=== PATIENT | male | born 1950 | race Caucasian/White ===

== ENCOUNTER → 2018-07-21 08:28 | Outpatient (CLI) | payer MEDICARE, OTHER, SELFPAY ==
[2018-07-21 10:14] LABS: Alanine Aminotransferase 30 IU/L (21-72); Aspartate Aminotransferase 20 IU/L (17-59); Cholesterol 201 mg/dL (140-199); HDL Cholesterol 57 mg/dL (40-60); LDL Cholesterol Calculated 109 mg/dL (<100); Triglycerides 174 mg/dL (35-150)
[2018-07-21 10:42] LABS: Prostate Specific Antigen Scrn 1.76 ng/mL (0.1-4.0)
== END ==
PROVIDERS: PCP Internal Medicine; Visit Provider Internal Medicine
DX: E78.2 Mixed hyperlipidemia (principal); Z23 Encounter for immunization
CPT/HCPCS: 36415; 80061; 84450; 84460; G0103

== ENCOUNTER 2018-10-08 07:22 | Day surgery (SDC) | payer MEDICARE, OTHER, SELFPAY ==
[2018-10-08] VITALS (8 sets, daily range): BP systolic 108–137; BP diastolic 68–81; PULSE 56–72; RESP 10–15; TEMP 36.2–36.6; O2SAT 65–95; BMI 31.0
--- NOTE | 2018-10-08 | PATH_ITS ---
[facility] Accession Number: [id number] . 01 Material submitted: . PART A: CECAL POLYP PART B: TRANSVERSE COLON POLYP X3 . 02 Diagnosis: A. Biopsy, Cecal Polyp: Tubular adenoma involving single biopsy fragment. . B. Biopsy, Transverse Colon Polyps: Three polypoid-shaped fragments of normal appearing colon mucosa consistent with mucosal polypoid redundancies. Negative for evidence of neoplasm on multiple histologic sections. MRV/10/09/2018 . 02 Electronically signed: . Nelson Beavers MD, Pathologist NPI- [id number] . 01 Gross description: . Received two formalin-filled containers, both labeled with the patient's name: . A. In a container labeled cecal polyp, are three less than 0.1 cm to 0.3 cm portions of tissue, entirely submitted in cassette A. B. In a container labeled transverse colon polyp x3, are three 0.3-0.5 cm portions of tissue, entirely submitted in cassette B. ([id number]) /FRR . 02 Pathologist provided ICD-10: D12.0 . 02 CPT . 068334, 028707 Performed at: 01 [facility] [address], [place], [place] [id number] MD Todd Coffey MD Phone: [phone] Performed at: 02 [facility] [address] [place], [place] [id number] MD Joan Mcnamara MD Phone: [phone]
[2018-10-08] MEDS: MIDAZOLAM 5 MG/5 ML VIAL IV (08:47)
[2018-10-08] MEDS: fentaNYL 250 MCG/5 ML INJ IV (08:48)
--- NOTE | 2018-10-08 08:56 | PM.HP.1 ---
History of Present Illness Chief complaint: [id number] Patient History Social History household members: spouse Family & Social History Social History: household members spouse Meds Home Medications Medication Instructions Recorded Confirmed Type Propoxyphene/Acetamin - 1 tab PO Q 4HR PRN #0 02/07/08 History (Darvocet-N 100) ROSUVASTATIN CALCIUM (Crestor) 10 mg PO Q DAY #0 02/07/08 History [CETRUM CARDIO] #0 02/07/08 History [CIALIS] 10 mg PO PRN #0 02/07/08 History [OCUVITE] #0 02/07/08 History atorvastatin 20 mg PO QPM 10/08/18 10/08/18 History lisinopril 10 mg PO DAILY 10/08/18 10/08/18 History Allergies Allergy/AdvReac Type Severity Reaction Status Date / Time Penicillins [PENICILLINS] Allergy Unknown Verified 10/08/18 07:50 Exam Vital Signs (past 8 hours): - 10/08/18 07:33 Temperature 97.3 F L Pulse Rate 67 Respiratory Rate 15 Blood Pressure 137/81 Pulse Oximetry 93 Oxygen Delivery Method Room Air
--- NOTE | 2018-10-08 08:57 | PM.PREOP ---
Pre-operative Note Interval Note History & Physical reviewed/Exam performed by Physician: Yes Changes to H&P: No ASA Class (for procedural sedation): II
--- NOTE | 2018-10-08 08:57 | PM.OP.ENDO ---
Operative Date/Time/Diagnoses Date of procedure: 10/08/18 Pre-op diagnosis: colon cancer screening Procedure & Clinicians Study performed: Colonoscopy with biopsy Indications: Colon cancer screening Procedure Notes Procedure in detail: Prior to the procedure, a history and physical was performed, and patient medications and allergies were reviewed. Preprocedure nursing history assessment was reviewed. Patient identification and proposed procedure were verified by the physician and nurse in the procedure room. The physical status of the patient was reassessed after the procedure. After informed consent was obtained including risks, benefits, and alternatives, the scope was passed under direct vision. Throughout the procedure, the patient's blood pressure, pulse, and oxygen saturations were monitored continuously. The adult colonoscope was introduced through the anus and advanced to the cecum as identified by the appendiceal orifice and ileocecal valve. The patient tolerated the procedure well. Bowel prep was deemed adequate to detect polyps greater than 5 mm. Digital rectal examination and perianal examinations were unremarkable. Retroflexion in the rectum revealed grade 1 internal hemorrhoids. Many medium mouth diverticula were seen in the descending and sigmoid colon Four sessile polyps measuring between 2-4 mm were noted in the cecum and transverse colon. These were resected and retrieved with a Jumbo biopsy forceps. A tattoo was noted in the sigmoid colon. No residual polyp was seen. Sedation minutes: 24 Complications: other (No complications. Estimated blood loss minimal.) Impression: Internal hemorrhoids Four 2-4 mm polyps removed from the cecum and transverse colon Sigmoid colon tattoo from prior polypectomy Plan for aftercare: Follow-up pathology results Repeat colonoscopy at a date to be determined based on pathology results High-fiber diet Resume home medications Discharge home with escort
[2018-10-08] MEDS: SODIUM CHLORIDE 0.9% 1,000 ML 200 ML IV (09:03)
--- NOTE | 2018-10-08 09:15 | SUR.PHASEI ---
care transferred to Glenna Kaiser RN, report given.,
--- NOTE | 2018-10-08 09:18 | SUR.PHASEI ---
Assumed care. Denied pain. Abd soft. O2 sats 90-95% on RA.
--- NOTE | 2018-10-08 09:21 | SUR.PHASEI ---
Declined po intake.
--- NOTE | 2018-11-05 17:01 | PM.HP.1 ---
History of Present Illness Chief complaint: [id number] Patient History Social History household members: spouse Family & Social History Social History: household members spouse Meds Home Medications Medication Instructions Recorded Confirmed Type Propoxyphene/Acetamin - 1 tab PO Q 4HR PRN #0 02/07/08 History (Darvocet-N 100) ROSUVASTATIN CALCIUM (Crestor) 10 mg PO Q DAY #0 02/07/08 History [CETRUM CARDIO] #0 02/07/08 History [CIALIS] 10 mg PO PRN #0 02/07/08 History [OCUVITE] #0 02/07/08 History atorvastatin 20 mg PO QPM 10/08/18 10/08/18 History lisinopril 10 mg PO DAILY 10/08/18 10/08/18 History Allergies Allergy/AdvReac Type Severity Reaction Status Date / Time Penicillins [PENICILLINS] Allergy Unknown Verified 10/08/18 07:50 Review of Systems Review of Systems All systems reviewed & are unremarkable except as noted in HPI and below Exam Vital Signs (past 8 hours): Oxygen Delivery Method Room Air Oxygen Flow Rate 93 Narrative Exam Narrative: Awake alert and oriented x3, pupils equal round reactive to light, heart regular rate and rhythm, lungs clear to auscultation, abdomen soft nontender nondistended, extremities without edema Assessment & Plan Assessment & Plan narrative: Colon cancer screening, colonoscopy
== END 2018-10-08 10:08 | disposition home or self-care (01) ==
PROVIDERS: PCP Internal Medicine; Visit Provider Internal Medicine
PROC: 0DJD8ZZ Inspection of Lower Intestinal Tract, Via Natural or Artificial Opening Endoscopic (ICD-10-PCS; CPT 45378; principal; 2018-10-08 08:30)
DX: Z12.11 Encounter for screening for malignant neoplasm of colon (principal); K57.30 Diverticulosis of large intestine without perforation or abscess without bleeding; K64.0 First degree hemorrhoids; D12.0 Benign neoplasm of cecum; D12.3 Benign neoplasm of transverse colon
CPT/HCPCS: 45380; 88305; J2250; J3010

== ENCOUNTER → 2018-11-21 08:17 | Outpatient (CLI) | payer MEDICARE, OTHER, SELFPAY ==
[2018-11-21 10:53] LABS: HEMOLYSIS < 15 (0-50)
[2018-11-21 10:58] LABS: Alanine Aminotransferase 27 IU/L (21-72); Aspartate Aminotransferase 23 IU/L (17-59); Blood Urea Nitrogen 20 mg/dL (9-20); Calcium 9.3 mg/dL (8.4-10.2); Carbon Dioxide 24 mmol/L (22-32); Chloride 104 mmol/L (98-107); Cholesterol 192 mg/dL (140-199); Estimated Glomerular Filt Rate > 60.0 mL/min (>60); Glucose 101 mg/dL (80-110); HDL Cholesterol 46 mg/dL (40-60); LDL Cholesterol Calculated 108 mg/dL (<100); Potassium 4.2 mmol/L (3.4-5.1); Sodium 139 mmol/L (137-145); Triglycerides 190 mg/dL (35-150)
[2018-11-21 11:31] LABS: Prostate Specific Antigen Scrn 1.86 ng/mL (0.1-4.0)
== END ==
PROVIDERS: PCP Internal Medicine; Visit Provider Internal Medicine
DX: I10 Essential (primary) hypertension (principal); Z12.5 Encounter for screening for malignant neoplasm of prostate; E78.2 Mixed hyperlipidemia
CPT/HCPCS: 36415; 80048; 80061; 84450; 84460; G0103

== ENCOUNTER → 2019-05-25 07:19 | Outpatient (CLI) | payer MEDICARE, OTHER, SELFPAY ==
[2019-05-25 09:04] LABS: Alanine Aminotransferase 32 IU/L (21-72); Aspartate Aminotransferase 24 IU/L (17-59); Blood Urea Nitrogen 16 mg/dL (9-20); Calcium 9.4 mg/dL (8.4-10.2); Carbon Dioxide 28 mmol/L (22-32); Chloride 104 mmol/L (98-107); Cholesterol 186 mg/dL (140-199); Estimated Glomerular Filt Rate > 60.0 mL/min (>60); Glucose 100 mg/dL (80-110); HDL Cholesterol 51 mg/dL (40-60); HEMOLYSIS < 15 (0-50); LDL Cholesterol Calculated 101 mg/dL (<100); Potassium 4.1 mmol/L (3.4-5.1); Sodium 140 mmol/L (137-145); Triglycerides 172 mg/dL (35-150)
== END ==
PROVIDERS: PCP Internal Medicine; Visit Provider Internal Medicine
DX: E78.2 Mixed hyperlipidemia (principal); I10 Essential (primary) hypertension
CPT/HCPCS: 36415; 80048; 80061; 84450; 84460

== ENCOUNTER → 2019-10-09 16:01 | Outpatient (CLI) | payer MEDICARE, OTHER, SELFPAY ==
--- NOTE | 2019-10-09 16:03 | DI.MRI.S_ITS ---
PROCEDURE: MR HEAD/BRAIN WO CON INDICATIONS: ANESTHESIA OF SKIN TECHNIQUE: Noncontrast axial T1 spin echo, axial T2 fast spin echo, sagittal and axial FLAIR, coronal T2 fast spin echo, axial gradient echo, axial diffusion and ADC through the brain. COMPARISON: None. FINDINGS: Image quality: Excellent. CSF Spaces: Basal cisterns are patent. No extra-axial fluid collections. Ventricles are normal in size and shape. Brain: No intracranial masses or hemorrhage. Stanley/white matter interface is normal. Brainstem appears normal. Diffusion-weighted images demonstrate no acute ischemic insult. No chronic ischemic insults. There are small foci of increased T2 signal in our noted in the white matter structures, within normal limits for patient age. Normal intravascular flow voids are present. Skull and face: Calvarium has normal marrow signal. Orbits appear normal. Sinuses: Mild left maxillary sinus mucosal thickening. Small right maxillary sinus mucus retention cyst. Sinuses and mastoids are otherwise clear. IMPRESSION: 1. Mild chronic left maxillary sinusitis. 2. Otherwise negative brain MRI for patient age. Dictated by: Zay Tirado M.D. on 10/10/2019 at 20:07 Approved by: Zay Tirado M.D. on 10/10/2019 at 20:09
== END ==
PROVIDERS: PCP Internal Medicine; Referring Provider Internal Medicine; Visit Provider Internal Medicine
DX: R20.0 Anesthesia of skin (principal); J32.0 Chronic maxillary sinusitis
CPT/HCPCS: 70551

== ENCOUNTER → 2020-08-16 08:05 | Outpatient (CLI) | payer MEDICARE, OTHER, SELFPAY ==
[2020-08-16 10:28] LABS: Alanine Aminotransferase 24 IU/L (<50); Albumin 3.8 g/dL (3.5-5.0); Albumin Globulin Ratio 1.3 (1.0-2.8); Alkaline Phosphatase 69 U/L (38-126); Aspartate Aminotransferase 22 IU/L (17-59); BUN Creatinine Ratio 16.5 (6-22); Bilirubin Total 0.4 mg/dL (0.2-1.3); Blood Urea Nitrogen 17 mg/dL (9-20); Calcium 9.9 mg/dL (8.4-10.2); Carbon Dioxide 29 mmol/L (22-32); Chloride 105 mmol/L (98-107); Cholesterol 168 mg/dL (140-199); Estimated Glomerular Filt Rate > 60.0 mL/min (>60); Glucose 101 mg/dL (80-110); HDL Cholesterol 56 mg/dL (40-60); HEMOLYSIS < 15 (0-50); LDL Cholesterol Calculated 78 mg/dL (<100); Potassium 4.2 mmol/L (3.4-5.1); Sodium 137 mmol/L (137-145); Total Protein 6.8 g/dL (6.3-8.2); Triglycerides 172 mg/dL (35-150)
[2020-08-17 07:14] LABS: PSA Free % 38.3 % (.); PSA, Total 2.4 ng/mL (0.0-4.0)
== END ==
PROVIDERS: PCP Internal Medicine; Referring Provider Internal Medicine; Visit Provider Internal Medicine
DX: I10 Essential (primary) hypertension (principal); E78.2 Mixed hyperlipidemia; Z12.5 Encounter for screening for malignant neoplasm of prostate
CPT/HCPCS: 36415; 80053; 80061; 84153; 84154

== ENCOUNTER → 2020-11-04 12:50 | Outpatient (CLI) | payer MEDICARE, OTHER, SELFPAY ==
[2020-11-04] MEDS: COVID-19 VACC, Ad26(JANSSEN)/PF 0.5 ML IM (13:19)
== END ==
PROVIDERS: PCP Internal Medicine; Visit Provider Internal Medicine
DX: Z23 Encounter for immunization (principal)
CPT/HCPCS: 0031A; 91303

== ENCOUNTER → 2020-11-10 19:11 | Outpatient (ROUT) | payer MEDICARE, OTHER, SELFPAY ==
[2020-11-10 19:19] LABS: Add Manual Diff / Slide Review NO; Basophils Absolute Auto 100 /uL (0-100); Basophils Percent Auto 0.8 % (0-2); Eosinophils Absolute Auto 200 /uL (0-450); Eosinophils Percent Auto 2.1 % (2-4); Hematocrit 45.5 % (41-53); Hemoglobin 15.4 g/dL (13.5-17.5); Lymphocytes Absolute Auto 1800 /uL (1100-4500); Lymphocytes Percent Auto 24.6 % (25-40); Mean Corpuscular HGB Conc 33.8 % (30-36); Mean Corpuscular Hemoglobin 31.2 PG (26-34); Mean Corpuscular Volume 92.4 fL (80-100); Monocytes Absolute Auto 1000 /uL (0-900); Monocytes Percent Auto 13.8 % (3-14); Neutrophils Absolute Auto 4400 /uL (1500-7000); Neutrophils Percent Auto 58.7 % (50-75); Platelet Count 204 X10^3/uL (150-400); Red Blood Cell Count 4.93 X10^6/uL (4.5-5.9); Red Cell Distribution Width 13.6 % (11.6-14.8); White Blood Cell Count 7.4 X10^3/uL (4.5-11.0)
[2020-11-10 19:29] LABS: Alanine Aminotransferase 22 IU/L (<50); Albumin 4.4 g/dL (3.5-5.0); Albumin Globulin Ratio 1.6 (1.0-2.8); Alkaline Phosphatase 82 U/L (38-126); Aspartate Aminotransferase 25 IU/L (17-59); BUN Creatinine Ratio 19.6 (6-22); Bilirubin Total 0.5 mg/dL (0.2-1.3); Blood Urea Nitrogen 18 mg/dL (9-20); Calcium 9.7 mg/dL (8.4-10.2); Carbon Dioxide 26 mmol/L (22-32); Chloride 105 mmol/L (98-107); Estimated Glomerular Filt Rate > 60.0 mL/min (>60); Globulin 2.8 g/dL (1.7-4.1); Glucose 95 mg/dL (80-110); HEMOLYSIS < 15 (0-50); Potassium 4.1 mmol/L (3.4-5.1); Sodium 137 mmol/L (137-145); Total Protein 7.2 g/dL (6.3-8.2)
[2020-11-10 19:58] LABS: TSH w/ Reflex to FT4 1.23 uIU/mL (0.47-4.68)
[2020-11-10 20:03] LABS: Ferritin 135 ng/mL (18-464)
== END ==
PROVIDERS: Visit Provider Physician Assistant
DX: R00.2 Palpitations (principal); R23.2 Flushing; I10 Essential (primary) hypertension
CPT/HCPCS: 80053; 82728; 84443; 85025

== ENCOUNTER → 2020-11-16 09:45 | Outpatient (CLI) | payer MEDICARE, OTHER, SELFPAY ==
--- NOTE | 2020-12-08 10:57 | PM.CARDMON.1 ---
Environmental Health And Safety Leader Report Referral & Results Date Patient Seen: 11/16/20 Requesting provider: Christine Szymanski Indication: Palpitations Duration of monitoring (days): 7 Diary information: There were 17 patient triggered events and 5 patient diary entries Patient triggered events were associated with (within 45 seconds) sinus rhythm, PVCs, PACs, ventricular trigeminy, and computer identified junctional rhythm Patient diary events were associated with (within 45 seconds) sinus rhythm, PVCs, PACs, and computer identified junctional rhythm Data: Minimum heart rate was 46 beats per minute at 04:40 on 11/18/2020 Maximum heart rate was 108 beats per minute at 16:40 on 11/19/2020 Less than 1% of identified beats were ventricular or supraventricular ectopic in origin, which would classify them as rare. The longest run of ventricular trigeminy was 25.3 seconds in duration What the computer identified as junctional rhythm appears to me to be narrow complex, probably supraventricular in origin, rather than true junctional rhythm Impression: Normal 7 day quality assurance monitor final showing rare PVCs and PACs without clear connection between patient reported symptoms and 1 particular dysrhythmia. No more serious dysrhythmias identified on this study
== END ==
PROVIDERS: PCP Internal Medicine; Referring Provider Physician Assistant; Visit Provider Physician Assistant
DX: R00.2 Palpitations (principal)
CPT/HCPCS: 93242; 93244

== ENCOUNTER → 2021-03-07 09:04 | Outpatient (CLI) | payer MEDICARE, OTHER, SELFPAY ==
--- NOTE | 2021-03-07 | DI.ECHO.S_ITS ---
[facility] [place] [facility]---------+ [facility] +---------+ : : [address] : : : : [id number] : : : : Phone: [phone]+ Echocardiogram Report + + :Name: GREG JERONIMO JR Study Date: 03/07/2021 Height: 69 in : :[facility] ReadingLocation: Weight: 220 lb : : Gender: Male BSA: 2.2 m2 : :: 1950 Age: 70 yrs BP: 134/79 mmHg: :Reason For Study: PALPITATIONS : :Ordering Physician: ADRIAN : :MADINA Performed By: Anusha Ibarra : :Referring: MADINA CAMPBELL : + + Interpretation Summary 1) Normal left ventricular size, wall motion, and systolic function (EF 55- 60%). 2) Normal right ventricular size and function. 3) No significant valvular abnormalities. 4) No prior Echo available for comparison. Procedure: A two-dimensional transthoracic echocardiogram with color flow and Doppler was performed. The study quality was technically adequate. There is no prior echocardiogram noted for this patient. The patient was in sinus bradycardia with heart rates between 52-58 bpm during the exam. Left Ventricle: The left ventricle is normal in size. Left ventricular wall thickness is mildly increased. The ejection fraction is estimated to be 55- 60%. Left ventricular systolic function appears normal without focal wall motion abnormalities. Diastolic parameters suggest probable normal left ventricular diastolic function and normal filling pressures. Right Ventricle: The right ventricle is normal in size and function. Atria: The left atrial size is normal. Right atrial size is normal. There is no Doppler evidence for an interatrial shunt. Mitral Valve: The mitral valve leaflets appear mildly thickened, but open well. There is mild mitral annular calcification. There is mild mitral regurgitation. Aortic Valve: The aortic valve is trileaflet. The aortic valve opens well. There is no aortic valve stenosis. There is trace aortic regurgitation. Tricuspid Valve: The tricuspid valve is normal in structure and function. There is a trace or physiologic amount of tricuspid regurgitation. Pulmonary artery pressures cannot be estimated because of the lack of a measurable TR jet velocity but the IVC suggests a CVP of around 3 mmHg. Pulmonic Valve: The pulmonic valve leaflets are thin and pliable; valve motion is normal. There is trace pulmonic regurgitation. Great Vessels: The aortic root is normal size. The ascending aorta is at the upper limits of normal in size. The IVC is of normal diameter and collapses greater than 50% with a sniff. This suggests a low right atrial pressure of 3 mm Hg. Pericardium/ Pleura There is no pericardial effusion. There is no pleural effusion. MMode/2D Measurements & Calculations LVIDd: 4.9 cm LVOT diam: 2.0 cm LVIDs: 3.4 cm Ao root diam: 3.5 cm FS: 31.2 % asc Aorta Diam: 3.5 cm IVSd: 0.99 cm Ao Arch Diam (Prox Trans): 2.8 cm LVPWd: 1.4 cm LV adrian. diameter/BSA (cm/m^2): 2.3 LV sys. diameter/BSA (cm/m^2): 1.6 LA A2 area: 23.4 cm2 RA long axis: 5.5 cm LA A4 area: 19.7 cm2 RA area: 16.0 cm2 LA length (vol): 5.6 cm RA vol: 39.7 ml LA vol: 70.2 ml RA : 18.5 ml/m2 LA vol index: 32.6 ml/m2 IVC diam: 2.0 cm RVD1 (basal): 3.6 cm TAPSE: 2.1 cm Doppler Measurements & Calculations Ao V2 max: 162.4 cm/sec LVOT Max Ananda: 108.0 cm/sec Ao V2 mean: 106.9 cm/sec LV V1 max P.7 mmHg Ao max P.5 mmHg LV V1 VTI: 24.0 cm Ao mean P.2 mmHg BRADEN(I,D): 2.1 cm2 Ao V2 VTI: 37.8 cm BRADEN(V,D): 2.2 cm2 sev ratio: 0.63 BRADEN indexed to BSA (cm^2/m^2): 0.96 MV E max ananda: 60.8 cm/sec PA V2 max: 123.1 cm/sec MV A max ananda: 53.3 cm/sec PA V2 mean: 84.8 cm/sec MV E/A: 1.1 PA mean P.2 mmHg Med Peak E' Ananda: 7.0 cm/sec PA pr(Accel): 27.6 mmHg E/E' med: 8.7 Lat Peak E' Ananda: 11.7 cm/sec E/E' lat: 5.2 E/e' average: 7.0 MV dec time: 0.17 sec SVLVOT): 78.2 ml Reading Physician:03:44 PM
== END ==
PROVIDERS: PCP Internal Medicine; Referring Provider Internal Medicine; Visit Provider Internal Medicine
DX: I34.0 Nonrheumatic mitral (valve) insufficiency (principal); R00.2 Palpitations
CPT/HCPCS: 93306

== ENCOUNTER → 2021-07-27 13:05 | Outpatient (CLI) | payer MEDICARE, OTHER, SELFPAY ==
[2021-07-27 13:59] LABS: COVID19 -Nasal RAPID POSITIVE (Negative)
== END ==
PROVIDERS: PCP Internal Medicine; Visit Provider Physician Assistant
DX: Z20.822 Contact with and (suspected) exposure to COVID-19 (principal)
CPT/HCPCS: 87635

== ENCOUNTER → 2023-04-17 14:20 | Outpatient (CLI) | payer MEDICARE, OTHER, SELFPAY ==
[2023-04-17 14:53] LABS: Hematocrit 42.5 % (41-53); Hemoglobin 14.5 g/dL (13.5-17.5); Mean Corpuscular HGB Conc 34.1 % (30-36); Mean Corpuscular Hemoglobin 31.7 PG (26-34); Platelet Count 207 X10^3/uL (150-400); Red Blood Cell Count 4.57 X10^6/uL (4.5-5.9); Red Cell Distribution Width 13.7 % (11.6-14.8); White Blood Cell Count 7.3 X10^3/uL (4.5-11.0)
[2023-04-17 15:20] LABS: Alanine Aminotransferase 35 IU/L (<50); Albumin Globulin Ratio 1.4 (1.0-2.8); Alkaline Phosphatase 73 U/L (38-126); Aspartate Aminotransferase 32 IU/L (17-59); BUN Creatinine Ratio 15.8 (6-22); Bilirubin Total 0.6 mg/dL (0.2-1.3); Blood Urea Nitrogen 15 mg/dL (9-20); Calcium 8.7 mg/dL (8.4-10.2); Carbon Dioxide 26 mmol/L (22-32); Chloride 106 mmol/L (98-107); Cholesterol 155 mg/dL (140-199); Estimated Glomerular Filt Rate > 60 mL/min (>60); Globulin 2.9 g/dL (1.7-4.1); Glucose 118 mg/dL (80-110); HDL Cholesterol 43 mg/dL (40-60); HEMOLYSIS < 15 (0-50); LDL Cholesterol Calculated 55 mg/dL (<100); Potassium 3.8 mmol/L (3.4-5.1); Sodium 137 mmol/L (137-145); Total Protein 6.9 g/dL (6.3-8.2); Triglycerides 284 mg/dL (35-150)
[2023-04-17 15:49] LABS: Prostate Specific Antigen 2.87 ng/mL (0.10-4.00); TSH w/ Reflex to FT4 0.85 uIU/mL (0.47-4.68)
[2023-04-17 16:03] LABS: Appearance Urine UA CLEAR; Bilirubin Urine UA NEGATIVE (NEGATIVE); Color Urine UA YELLOW; Glucose Urine UA NEGATIVE (Negative); Ketones Urine UA NEGATIVE (NEGATIVE); Leukocyte Esterase Urine UA NEGATIVE (NEGATIVE); Nitrite Urine UA NEGATIVE (Negative); Occult Blood Urine UA NEGATIVE (Negative); Protein Urine UA NEGATIVE (Negative)
[2023-04-17 16:07] LABS: Bacteria Urine None Seen; Culture Indicated Urine Cult Not Indicated; RBC Urine None Seen (0-5/HPF); Squamous Epithelial Cell Urine None Seen (0-5/HPF); Urine Comments Microscopic Normal; WBC Urine None Seen (0-5/HPF)
== END ==
PROVIDERS: PCP Internal Medicine; Referring Provider Internal Medicine; Visit Provider Internal Medicine
DX: E78.2 Mixed hyperlipidemia (principal); I10 Essential (primary) hypertension; N40.1 Benign prostatic hyperplasia with lower urinary tract symptoms; N13.8 Other obstructive and reflux uropathy; N48.6 Induration penis plastica
CPT/HCPCS: 36415; 80053; 80061; 81001; 84153; 84443; 85027

== ENCOUNTER → 2023-08-06 16:46 | Outpatient (CLI) | payer MEDICARE, OTHER, SELFPAY ==
[2023-08-06 17:45] LABS: Influenza A - CEPHEID Flu A NEGATIVE (NEGATIVE); Influenza B - CEPHEID Flu B NEGATIVE (NEGATIVE); Respiratory Syncytial Virus Negative (Negative)
[2023-08-06 17:59] LABS: COVID-19 CEPHEID 4-PLEX PCR Negative (Negative)
== END ==
PROVIDERS: PCP Internal Medicine; Visit Provider Physician Assistant
DX: R05.1 Acute cough (principal)
CPT/HCPCS: 0241U

== ENCOUNTER → 2023-12-07 09:30 | Outpatient (CLI) | payer MEDICARE, OTHER, SELFPAY ==
--- NOTE | 2023-12-07 09:34 | DI.CT.S_ITS ---
PROCEDURE: CT SINUS SCREEN WO CON INDICATIONS: Chronic pansinusitis TECHNIQUE: Noncontrast 3.0 mm axial images acquired from the frontal sinuses to the mid-sella, with coronal and sagittal reformats. For radiation dose reduction, the following was used: automated exposure control, adjustment of mA and/or kV according to patient size. COMPARISON: None. FINDINGS: Image quality: Excellent. Sinuses: Small mucous retention cyst versus polyp in the right maxillary sinus. Remaining sinuses demonstrate very minimal scattered areas of mucosal thickening. No fluid levels. Ostiomeatal Complexes: Ostiomeatal complexes are patent. No Milvia cells. Miscellaneous: Visualized intra-orbital contents are normal. Left courtney bullosa without paradoxical turbinate curvature. No nasal septal deviation. IMPRESSION: Small mucous retention cyst versus polyp in the right maxillary sinus. Otherwise, very minimal areas of scattered mucosal thickening without fluid levels. Dictated by: Jennifer Levin M.D. on 12/07/2023 at 11:56 Approved by: Jennifer Levin M.D. on 12/07/2023 at 11:58
== END ==
LOC: CT 09:32
PROVIDERS: PCP Internal Medicine; Referring Provider Otolaryngology; Visit Provider Otolaryngology
DX: J32.4 Chronic pansinusitis (principal); R51.9 Headache, unspecified; J34.89 Other specified disorders of nose and nasal sinuses
CPT/HCPCS: 70486

== ENCOUNTER → 2024-04-20 08:55 | Outpatient (CLI) | payer MEDICARE, OTHER, SELFPAY ==
[2024-04-20 10:21] LABS: Aspartate Aminotransferase 24 IU/L (17-59); BUN Creatinine Ratio 14.2 (6-22); Blood Urea Nitrogen 16 mg/dL (9-20); Calcium 9.4 mg/dL (8.4-10.2); Carbon Dioxide 26 mmol/L (22-32); Chloride 103 mmol/L (98-107); Cholesterol 180 mg/dL (140-199); Estimated Glomerular Filt Rate > 60 mL/min (>60); Glucose 113 mg/dL (80-110); HDL Cholesterol 50 mg/dL (40-60); HEMOLYSIS < 15 (0-50); LDL Cholesterol Calculated 90 mg/dL (<100); Potassium 4.2 mmol/L (3.4-5.1); Sodium 137 mmol/L (137-145); Triglycerides 199 mg/dL (35-150)
[2024-04-20 10:54] LABS: Prostate Specific Antigen 2.53 ng/mL (0.10-4.00)
== END ==
PROVIDERS: PCP Internal Medicine; Referring Provider Internal Medicine; Visit Provider Internal Medicine
DX: E78.2 Mixed hyperlipidemia (principal); N40.1 Benign prostatic hyperplasia with lower urinary tract symptoms; N13.8 Other obstructive and reflux uropathy; I10 Essential (primary) hypertension
CPT/HCPCS: 36415; 80048; 80061; 84153; 84450

== ENCOUNTER 2024-08-10 12:09 | Day surgery (SDC) | payer MEDICARE, OTHER, SELFPAY ==
--- NOTE | 2024-08-10 | PATH_ITS ---
[facility] Accession Number: [id number] No. of containers..01 Tissue . 01 Material submitted: . colon - COLON, 30 CM POLYPS . 01 Diagnosis: COLON, 30 CM POLYPS: 1. Tubular adenoma. 2. Additional fragment of polypoid inflamed granulation tissue. [facility] 08/12/20241358 Local . 01 Electronically signed: . Todd Coffey MD, Pathologist NPI- [id number] . 01 Gross description: . Received in formalin with two patient identifiers and 30 cm polyps, are two dominguez soft tissue fragments 0.3 to 0.5 cm in greatest dimension. submitted in cassette A1. ([id number]) /T[facility]ARA 08/12/20241358 Local . 01 Pathologist provided ICD-10: D12.6 . 01 CPT . 125069 Specimen Comment: A courtesy copy of this report has been sent to [phone] Performed at: 01 [facility] [address], [place], [place] [id number] MD Todd Coffey MD Phone: [phone]
[2024-08-10 12:57] VITALS: BP 126/78; PULSE 64; RESP 14; TEMP 36.1; O2SAT 92
--- NOTE | 2024-08-10 13:11 | PM.HP.1 ---
History of Present Illness History of Present Illness Date Patient Seen: 08/10/24 Chief complaint: [facility] Narrative: Colorectal cancer screening with 5 year interval. Possible history of colon polyps but unclear. [facility] Medical History BPH w urinary obs/LUTS Cataracts, bilateral (~1990) Chronic low back pain Diverticular disease (~1969) Erectile dysfunction Essential hypertension History of colonic polyps History of retinal detachment Macular degeneration (senile) of retina Mixed hyperlipidemia Obesity (BMI 30.0-34.9) Obstructive sleep apnea syndrome Partial blindness (~1988) Peyronie disease Retinal detachment (~1988) Skin cancer (~2000) Tinnitus Surgical History Anesthesia History of appendectomy (~1958) History of detached retina repair (~1984) Status post surgical removal of malignant neoplasm of skin Family History Father Cancer Diabetes mellitus Hypertension Mother Stroke Sister Cancer History of heart disease Grandfather Hypertension Grandfather Diabetes mellitus History of heart disease Grandmother No problems noted. 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 household members: spouse Smoking Status: Never smoker alcohol intake: current Meds Home Medications and Allergies Home Medications Medication Instructions Recorded Confirmed Type vitamins A,C,F-dtjk-yrphnk 2,148 1 tab PO DAILY 04/17/23 08/05/24 History mcg-113 mg-45 mg-17.4 mg tablet tamsulosin 0.4 mg capsule 0.8 mg (2 x 0.4 mg) PO BEDTIME 04/20/24 08/05/24 Rx #180 caps lisinopril 40 mg tablet 40 mg PO DAILY #90 tabs 06/01/24 08/10/24 Rx atorvastatin 40 mg tablet 40 mg PO DAILY #90 tabs 06/29/24 08/10/24 Rx metoprolol succinate 100 mg 100 mg PO DAILY #90 tabs 06/29/24 08/10/24 Rx tablet,extended release 24 hr azelastine 137 mcg (0.1 %) nasal intranasal 08/05/24 08/05/24 History spray fluticasone propionate 50 spray intranasal 08/05/24 08/05/24 History mcg/actuation nasal spray,suspension levofloxacin 500 mg tablet 500 mg PO DAILY #7 tabs 08/05/24 08/10/24 Rx Allergies Allergy/AdvReac Type Severity Reaction Status Date / Time Penicillins [PENICILLINS] Allergy Unknown Doesn't Verified 08/10/24 12:47 remember-happened as child Exam Vital Signs (past 8 hours): - 08/10/24 12:57 Temperature 97.0 F L Pulse Rate 64 Respiratory Rate 14 Blood Pressure 126/78 Pulse Oximetry 92 Oxygen Delivery Method Room Air Oxygen Delivery Method Room Air Narrative Exam Narrative: Oropharynx free of lesions Chest clear to auscultation percussion Cardiac exam reveals no S3 or murmur Assessment & Plan Assessment & Plan narrative: Need for colorectal cancer screening at a 5 year interval. Risks, benefits, alternatives have been explained. Time-Based Coding :: [TOTAL MINUTES] spent with patient and on the chart (including review of chart, obtaining history, exam, reviewing outside data, placing orders, documenting exam and treatment plan, and counseling patient) on [DATE].
--- NOTE | 2024-08-10 13:12 | P.OP.COLON_ITS ---
Operative Date/Time/Diagnoses Date of procedure: 08/10/24 Pre-op diagnosis: See indication and findings Procedure & Clinicians Study performed: Colonoscopy Indications: After informed consent was obtained the patient was placed in left lateral decubitus position. The video colonoscope was introduced the rectum slowly advanced cecum. Preparation was good. On slow withdrawal mucosa was carefully examined. The scope was removed preparation was good. The patient tolerated procedure well. Complications none Sedation mac Findings 1. 6 mm polyp at 30 cm cold snared and removed completely 2. 3 mm polyp at 25 cm cold snared and removed completely. This was placed in the same bottle as above 3. Rare scattered diverticulosis in the sigmoid Four. Otherwise negative colonoscopy to cecum Will be in touch regarding pathology however I expect patient will need follow- up colonoscopy in 5 years
[2024-08-10 13:34] VITALS: BP 102/50; PULSE 68; RESP 14; TEMP 36.4; O2SAT 90
[2024-08-10 13:38] VITALS: BP 82/57; PULSE 69; RESP 14; O2SAT 94
[2024-08-10 13:43] VITALS: BP 105/53; PULSE 66; RESP 17; O2SAT 93
[2024-08-10 13:46] VITALS: BP 103/56; PULSE 63; RESP 15; TEMP 36.6; O2SAT 93
== END 2024-08-10 14:14 | disposition home or self-care (01) ==
PROVIDERS: PCP Internal Medicine; Referring Provider Internal Medicine Gastroenterology; Visit Provider Internal Medicine Gastroenterology
PROC: 0DJD8ZZ Inspection of Lower Intestinal Tract, Via Natural or Artificial Opening Endoscopic (ICD-10-PCS; CPT 45378; principal; 2024-08-10 13:30)
DX: Z12.11 Encounter for screening for malignant neoplasm of colon (principal); K57.30 Diverticulosis of large intestine without perforation or abscess without bleeding; D12.6 Benign neoplasm of colon, unspecified; K63.5 Polyp of colon
CPT/HCPCS: 45385; J2704

== ENCOUNTER → 2024-08-21 08:17 | Outpatient (CLI) | payer MEDICARE, OTHER, SELFPAY ==
--- NOTE | 2024-08-21 08:19 | DI.US.S_ITS ---
PROCEDURE: US SCROTUM INDICATIONS: left testicle pain TECHNIQUE: Real-time scanning was performed of the scrotum and testicles, with image documentation. Color and pulse Doppler interrogation was performed of both testicles. COMPARISON: None. FINDINGS: Right: Testicle is normal in size at 4.4 x 2.8 x 2.1 cm, and homogenous in echotexture. 3 mm cystic lesion without internal complexity, possibly related to the rete testis. Epididymis is normal in overall size and morphology. No hydrocele or varicoceles. Overlying scrotal skin is normal in thickness. Left: Testicle is normal in size at 4.1 x 2.4 x 1.7 cm, and homogeneous in echotexture. Tubular ectasia of the rete testis. Epididymis is normal in overall size and morphology. Small varicocele. Overlying scrotal skin is normal in thickness. Doppler: Color and pulse Doppler demonstrate normal and symmetric arterial flow in both testicles. Small, left inguinal hernia containing fat. This is reducible. IMPRESSION: Small, left inguinal hernia containing fat. This is reducible. Left-sided varicocele. Dictated by: Zoran Harris M.D. on 08/21/2024 at 14:25 Approved by: Zoran Harris M.D. on 08/21/2024 at 14:27
== END ==
PROVIDERS: PCP Internal Medicine; Referring Provider Internal Medicine; Visit Provider Internal Medicine
DX: N50.812 Left testicular pain (principal); K40.90 Unilateral inguinal hernia, without obstruction or gangrene, not specified as recurrent; I86.1 Scrotal varices
CPT/HCPCS: 76870; 93975

== ENCOUNTER → 2024-09-10 09:37 | Outpatient (CLI) | payer MEDICARE, OTHER, SELFPAY ==
[2024-09-10 10:39] LABS: Blood Urea Nitrogen 14 mg/dL (9-20); Calcium 8.9 mg/dL (8.4-10.2); Carbon Dioxide 25 mmol/L (22-32); Chloride 104 mmol/L (98-107); Estimated Glomerular Filt Rate > 60 mL/min (>60); Glucose 116 mg/dL (80-110); HEMOLYSIS < 15 (0-50); Potassium 3.4 mmol/L (3.4-5.1); Sodium 136 mmol/L (137-145)
== END ==
PROVIDERS: PCP Internal Medicine; Referring Provider Urology; Visit Provider Urology
DX: R31.21 Asymptomatic microscopic hematuria (principal)
CPT/HCPCS: 36415; 80048

== ENCOUNTER → 2024-09-22 08:27 | Outpatient (CLI) | payer MEDICARE, OTHER, SELFPAY ==
--- NOTE | 2024-09-22 08:29 | DI.US.S_ITS ---
ULTRASOUND OF RIGHT AXILLA: 09/22/2024 CLINICAL: Palpable right axilla lump, much smaller after spontaneous opening and course of antibiotics. No prior exams were available for comparison. Color flow and real-time ultrasound of the right axilla were performed. Stanley scale images of the real-time examination were reviewed. There is a 3.6 cm x 1.7 cm x 1.6 cm irregular fluid collection in the right axillary tail. This irregular fluid collection is hypoechoic. This correlates to the reported pain. Color flow imaging demonstrates that there is no vascularity present. No surrounding hyperemia currently demonstrated. IMPRESSION: PROBABLY BENIGN The 3.6 cm irregular fluid collection is most consistent with a phlegmon or thick abscess and is probably benign. No surrounding hyperemia currently demonstrated. Recommend clinical follow-up. Incision and drainage if clinically indicated. A follow-up ultrasound in 3 months is recommended if not resolved. Exam findings were conveyed to the patient. Patient is advised to monitor for significant change. Patient reports spontaneous drainage of pus and interval decrease in size. This exam was interpreted at Station ID: [id number]. Electronically Signed By: Cameron Knott M.D. [facility]/:09/22/2024 09:22:37 letter sent: Followup Recommended ACR BI-RADS Category 3: Probably Benign
--- NOTE | 2024-09-22 08:29 | DI.US.S_ITS ---
PROCEDURE: US SCROTUM INDICATIONS: Left testicular pain/varicocele TECHNIQUE: Real-time scanning was performed of the scrotum and testicles, with image documentation. Color and pulse Doppler interrogation was performed of both testicles. COMPARISON: [facility], , US SCROTUM, 08/21/2024, 8:35. FINDINGS: Right: Testicle is normal in size at 4.2 x 1.7 x 2.3 cm, and homogenous in echotexture. Stable 2.5 mm simple cyst. Epididymis is normal in overall size and morphology. No hydrocele or varicoceles. Overlying scrotal skin is normal in thickness. Left: Testicle is normal in size at 3.5 x 1.7 x 2.6 cm, and homogeneous in echotexture. Tubular ectasia of the rete testes. Epididymis is normal in overall size and morphology. Simple epididymal head cyst measuring 2.6 mm. Left-sided varicocele. Overlying scrotal skin is normal in thickness. Doppler: Color and pulse Doppler demonstrate normal and symmetric arterial flow in both testicles. IMPRESSION: Left-sided varicocele. Dictated by: Zoran Harris M.D. on 09/22/2024 at 15:43 Approved by: Zoran Harris M.D. on 09/22/2024 at 15:44
--- NOTE | 2024-09-22 09:34 | DI.CT.S_ITS ---
PROCEDURE: CT ABDOMEN PELVIS WO/W CON INDICATIONS: Asymptomatic microscopic hematuria TECHNIQUE: Optional 5 mm thick noncontrast images acquired from the diaphragm to the symphysis pubis. After the administration of intravenous contrast, 5 mm thick images acquired from the diaphragm to the symphysis pubis after a 10-minute delay. 2 mm thick coronal and sagittal reformats were then performed of the kidneys and ureters. For radiation dose reduction, the following was used: automated exposure control, adjustment of mA and/or kV according to patient size. COMPARISON: None. FINDINGS: Image quality: Diagnostic. Kidneys and Ureters: Both kidneys are normal in size, without hydronephrosis or nephrolithiasis. No perinephric fat stranding. There is normal bilateral renal enhancement. Renal calyces appear normal in morphology when filled with contrast. Opacified portions of both ureters demonstrate normal caliber Bladder: Bladder wall thickness is normal. No calcified bladder stones. OTHER: Lower chest: Unremarkable. Liver: No solid mass. Gallbladder: No radiopaque gallstones or wall thickening. Biliary ducts: No biliary dilation. Pancreas: No ductal dilation. Spleen: Size is within normal limits. Adrenal Glands: No adrenal nodules. Stomach and Bowel: Normal colonic caliber, without significant wall thickening. Colonic diverticulosis without evidence of diverticulitis. Peritoneum: No abnormal intraperitoneal fluid. No free air. Ventral Wall: No hernia. Abdominal Nodes: No retroperitoneal or mesenteric adenopathy by size criteria. Vessels: Aorta and inferior vena cava are normal in size. PELVIS: Pelvic Organs: Unremarkable. Pelvic Nodes: No enlarged lymph nodes. Miscellaneous: Large right femoral hernia. Small left inguinal hernia containing fat. Bones: No aggressive osseous abnormality. L5 pars defects without significant anterolisthesis. IMPRESSION: No nephrolithiasis or filling defects within the opacified renal collecting system or ureters. Colonic diverticulosis without evidence of diverticulitis. Large right femoral hernia containing fat. Dictated by: Zoran Harris M.D. on 09/22/2024 at 15:45 Approved by: Zoran Harris M.D. on 09/22/2024 at 15:48
== END ==
PROVIDERS: PCP Internal Medicine; Referring Provider Internal Medicine; Visit Provider Internal Medicine
DX: L73.9 Follicular disorder, unspecified (principal); R31.21 Asymptomatic microscopic hematuria; N50.812 Left testicular pain; I86.1 Scrotal varices; K57.30 Diverticulosis of large intestine without perforation or abscess without bleeding; K41.90 Unilateral femoral hernia, without obstruction or gangrene, not specified as recurrent; R93.6 Abnormal findings on diagnostic imaging of limbs
CPT/HCPCS: 74178; 76870; 76882; 93975; Q9967

== ENCOUNTER → 2024-09-24 14:05 | Outpatient (CLI) | payer MEDICARE, OTHER, SELFPAY | PROVIDERS: PCP Internal Medicine; Visit Provider Internal Medicine | DX: L73.9 Follicular disorder, unspecified (principal) | CPT/HCPCS: 87070; 87075; 87205 ==

== ENCOUNTER → 2024-11-13 12:07 | Outpatient (CLI) | payer MEDICARE, OTHER, SELFPAY ==
[2024-11-13 12:54] LABS: COVID-19 CEPHEID 4-PLEX PCR Negative (Negative); Influenza A - CEPHEID Flu A NEGATIVE (NEGATIVE); Influenza B - CEPHEID Flu B NEGATIVE (NEGATIVE); Respiratory Syncytial Virus Negative (Negative)
== END ==
PROVIDERS: PCP Internal Medicine; Visit Provider Student in an Organized Health Care Education/Training Program
DX: R05.1 Acute cough (principal)
CPT/HCPCS: 0241U

== ENCOUNTER → 2024-11-18 11:49 | Outpatient (CLI) | payer MEDICARE, OTHER, SELFPAY ==
--- NOTE | 2024-11-18 11:50 | DI.RAD.S_ITS ---
PROCEDURE: XR CHEST 2V INDICATIONS: cough 7+D, fatigue TECHNIQUE: 2 views of the chest were acquired. COMPARISON: None. FINDINGS AND IMPRESSION: No dense airspace disease or pleural effusion. Normal heart size. Degenerative osseous changes. Dictated by: Vinh Luna M.D. on 11/18/2024 at 12:51 Approved by: Vinh Luna M.D. on 11/18/2024 at 12:51
== END ==
PROVIDERS: PCP Internal Medicine; Referring Provider Student in an Organized Health Care Education/Training Program; Visit Provider Student in an Organized Health Care Education/Training Program
DX: R05.9 Cough, unspecified (principal); R53.83 Other fatigue
CPT/HCPCS: 71046

== ENCOUNTER → 2024-12-28 13:10 | Outpatient (CLI) | payer MEDICARE, OTHER, SELFPAY | PROVIDERS: PCP Internal Medicine; Visit Provider Urology | DX: Z01.818 Encounter for other preprocedural examination (principal); N40.1 Benign prostatic hyperplasia with lower urinary tract symptoms; N13.8 Other obstructive and reflux uropathy; R31.21 Asymptomatic microscopic hematuria | CPT/HCPCS: 87086; 99214 ==

== ENCOUNTER 2025-01-05 06:12 | Day surgery (SDC) | payer MEDICARE, OTHER, SELFPAY ==
[2024-12-30 10:48] VITALS: BMI 33.3
[2025-01-05] VITALS (13 sets, daily range): BP systolic 93–123; BP diastolic 43–70; PULSE 54–68; RESP 10–16; TEMP 36.1–36.5; O2SAT 92–96; BMI 31.7
--- NOTE | 2025-01-05 | PATH_ITS ---
[facility] Accession Number: [id number] No. of containers..01 Tissue . 01 Material submitted: . prostate - PROSTATE CHIPS . 01 Diagnosis: PROSTATE, TURP: Benign prostatic parenchyma and smooth muscle bundles. No evidence of malignancy. MRV 01/08/2025 1438 Local . 01 Electronically signed: . David Quiroga MD, PhD, Pathologist NPI- [id number] . 01 Gross description: . Received in formalin with two identifiers and prostate chips, are multiple dominguez soft tissure fragments admixed with a moderate amount of hemorrhagic material weighing 2 grams and aggregating to 4.6 x 3.1 x 1.3 cm. Submitted entirely in cassettes A1-A2. ([id number]) /TAMARA 01/06/20251952 Local . 01 Pathologist provided ICD-10: N40.1 . 01 CPT . 109278 Specimen Comment: A courtesy copy of this report has been sent to [phone] Performed at: [address] [id number] MD Todd Coffey MD Phone: [phone]
[2025-01-05] MEDS: LACTATED RINGERS 1,000 ML 21 ML IV (06:59)
--- NOTE | 2025-01-05 07:32 | SUR.PREOP ---
All instructions and education reviewd with patient and at bedside regarding figueroa catheter care. Kit provided for home irrigation.
--- NOTE | 2025-01-05 07:33 | PM.PREOP ---
Pre-operative Note COVID-19 COVID-19 status: Not tested Interval Note History & Physical reviewed/Exam performed by Physician: Yes Changes to H&P: No
[2025-01-05] MEDS: CIPROFLOXACIN 400 MG/200 ML PIGGYBACK 200 MG IV (08:15)
--- NOTE | 2025-01-05 08:21 | SUR.OPER ---
Lithotomy on padded OR bed, head on pillow, arms secured on padded arm boards at <90 degrees abduction. Legs secured in padded yellow fins stirrups.
--- NOTE | 2025-01-05 09:38 | PM.OP.1 ---
Operative Date/Time/Diagnoses Date of procedure: 01/05/25 Time of procedure: 09:38 Pre-op diagnosis: BPH with LUTS Post-op diagnosis: same Procedure & Clinicians Procedure: 1. Aquablation 2. Transrectal ultrasound of prostate 3. Transurethral resection/cautery of prostate bipolar 4. Placement of Gray catheter Same procedure as scheduled: Yes Indications: This 74-year-old male presented with complaints of worsening BPH with LUTS on maximal medical therapy. Through workup he was found to have you an AUA symptom score of 21 with a bothersome index of for prostate was measured at 64.72 mL by ultrasound at cystoscopy had an obstructing prostate no median lobe with small amount of blood bulging into the bladder. Uroflow his average flow was 2.7 with these parameters patient was not ideal candidate for Aquablation. His PSA was in the 2-3 range so no worry of cancer. Patient wishes Aquablation and presents at this time for the procedure to treat his urinary symptoms. Surgeon: Darin Chavez Click Yes if Unassisted: Yes Anesthesia Type: General Operative Notes Findings: At cystoscopy urethral meatus is normal urethra is normal along its length with normal mucosa. The sphincter as well coapted the prostate exhibits marked obstructive character with a small amount of bulging into the bladder but no median lobe ureteral orifices in normal position with clear efflux severe trabeculation and cellules and no other worrisome findings were noted. At the end of the procedure the prostate was widely patent with the patient had a vigorous stream. A [address] hematuria catheter was left in place with 45 cc in the balloon. It was connected to gravity drainage and and CBI. Closure Type: not applicable Specimen(s): other (Prostate chips) Prosthetic devices, grafts, tissues, transplants, or devices: [address] [place] [address] hematuria catheter left in place to CBI with 45 cc in the balloon. Estimated Blood Loss (mL): 30 Blood products transfused: none Procedure in detail: Procedure in detail: After informed consent was obtained, the patient was identified brought to the operating room where he was placed in supine position on the table. Once there anesthesia was induced and maintained. Ensuring an adequate level of anesthesia the patient was transitioned to the lithotomy position. Once in the lithotomy position the patient was prepped in a sterile fashion. Once prepped and ensuring an adequate level of anesthesia, administration of antibiotics, after time-out the ultrasound probe was inserted in the following fashion. 60 cc of ultrasound gel was instilled in the rectum followed by the ultrasound probe which he had been attached to the trust stepper which was mounted to the articulating arm and secured to the bed. The ultrasound probe was then aligned and confirmation made that the prostate was centered and aligned using both the transverse and longitudinal or sagittal view. The bladder neck verumontanum and central and transition zones were identified. The patient's prostate at previously been measured in the 64 g range. With this accomplished the patient was then draped and the aqua beam handpiece was inserted into the urethra and under direct vision through the urethra prostate and into the bladder were cystoscopy is performed as it was inserted to the bladder neck, external sphincter and verumontanum were noted under direct vision and by the ultrasound. The Aquablation handpiece was in his secured to the handpiece articulating arm which he had been attached to the bed. Confirmation that the Aquablation handpiece and truss probe were parallel and colinear was performed. The Aquablation nodule was confirmed to be centered and anterior to the bladder neck. The cystoscope was then backed up to the external sphincter and then advanced so that it was just proximal to the external sphincter. It was left in this position the alignment of the truss probe and Aquablation handpiece was once again confirmed. Compression was applied with a truss probe and horizontal alignment of the hand piece water jet nozzle was performed. The Aquablation treatment zones were then planned using real-time ultrasound to visualize the contour of the prostate and depth and radial angles were defined in the ley widest transverse you. In the longitudinal or sagittal view the aqua beam nozzle was identified in his position registered with the software. The length of treatment was then registered with the software. The treatment contours were then set and adjusted to conform to the intended resection of the prostate noting the start of resection bladder neck mid prostate and tip of the the scope. With the contours and desired area of resection define showing that the patient would not move the Aquablation him was employed and the Aquablation treatment was started and followed the contours. With the 1st pass completed a 2nd pass was performed after adjustment of the contours including the start bladder neck mid prostate and again the end of resection. With these confirmed again showing the patient would not move the Aquablation treatment was performed and completed. It was determined that a 3rd pass would be beneficial and again the contours were adjusted and the treatment performed in an identical fashion to the previous 2. Total Aquablation time was around 11 minutes. At this point with the Aquablation completed the scope was advanced to the tip with the hand piece and the Aquablation handpiece was detached from the articulating arm and the scope was looked out. At this point a resectoscope was inserted Ellik evacuator was used to clear the bladder of any clots. Then using the bipolar resecting loop the ureteral orifices were identified in the bladder neck was resected and points of bleeding controlled from approximately the 2 to 10 o'clock position. Anteriorly there were some bleeding vessels which were also cauterized. On the right lateral lobe there was an arterial bleeder which was cauterized. At this point the Ellik evacuator was once again employed to evacuate the prostate chips. Points of bleeding were once again inspected for and controlled with the bipolar cautery. With hemostasis good the bladder was left full the scope was removed and the patient had a vigorous stream. It we then with the aid of a cath guide a [address] [place] [address] hematuria catheter was advanced into the bladder under ultrasound guidance. The balloon was filled with 45 cc of sterile water was placed to gravity drainage and CBI. The ultrasound probe was removed. The catheter was hand irrigated and the effluent remained clear at this point with a catheter in place patient was awakened take having tolerated the procedure well transferred to the postanesthesia care unit for recovery. Determination will be made depending on the color the effluent regarding discharge. Complications: none Post-operative Condition: stable Disposition: PACU Plan for aftercare: Patient will be observed in recovery and if appropriate sent home and if need be brought in for further continuous bladder irrigation. He will follow-up in my office in a proximally 1 week for voiding trial and catheter removal.
[2025-01-05] MEDS: ALBUTEROL 2.5 MG/3 ML NEB (ADULT) INH (09:41)
[2025-01-05] MEDS: ACETAMINOPHEN 325 MG TABLET 650 MG PO (10:17)
[2025-01-05] MEDS: PHENAZOPYRIDINE 100 MG TABLET 200 MG PO (10:17)
[2025-01-05] MEDS: LACTATED RINGERS 1,000 ML 42 ML IV (10:43)
[2025-01-05] MEDS: OXYBUTYNIN 5 MG TABLET PO (11:10)
== END 2025-01-05 14:11 | disposition home or self-care (01) ==
PROVIDERS: PCP Internal Medicine; Referring Provider Urology; Visit Provider Registered Nurse Critical Care Medicine
PROC: 0VT08ZZ Resection of Prostate, Via Natural or Artificial Opening Endoscopic (ICD-10-PCS; CPT 0421T; principal; 2025-01-05 07:45)
DX: N40.1 Benign prostatic hyperplasia with lower urinary tract symptoms (principal); R31.21 Asymptomatic microscopic hematuria; I86.1 Scrotal varices; R33.9 Retention of urine, unspecified
CPT/HCPCS: 0421T; C2596; J0744; J1171; J2250; J2704; J3010; J3490; J7613

== ENCOUNTER → 2025-01-12 14:33 | Outpatient (CLI) | payer MEDICARE, OTHER, SELFPAY | PROVIDERS: PCP Internal Medicine; Visit Provider Urology | DX: N40.1 Benign prostatic hyperplasia with lower urinary tract symptoms (principal); N13.8 Other obstructive and reflux uropathy | CPT/HCPCS: 87086 ==

== ENCOUNTER → 2025-03-02 08:42 | Outpatient (CLI) | payer MEDICARE, OTHER, SELFPAY | PROVIDERS: PCP Internal Medicine; Visit Provider Urology | DX: R31.21 Asymptomatic microscopic hematuria (principal); R39.9 Unspecified symptoms and signs involving the genitourinary system | CPT/HCPCS: 51798; 81002; 87086 ==

== ENCOUNTER → 2025-03-05 16:09 | Outpatient (CLI) | payer MEDICARE, OTHER, SELFPAY | PROVIDERS: PCP Internal Medicine; Visit Provider Urology | DX: R39.9 Unspecified symptoms and signs involving the genitourinary system (principal) | CPT/HCPCS: 87086 ==

== ENCOUNTER → 2025-08-02 08:59 | Outpatient (CLI) | payer MEDICARE, OTHER, SELFPAY ==
[2025-08-02 10:45] LABS: Hemoglobin A1C% w Est Avg Glu 6.0 % (4.0-6.0)
[2025-08-02 10:58] LABS: Blood Urea Nitrogen 14 mg/dL (9-20); Calcium 8.9 mg/dL (8.4-10.2); Carbon Dioxide 28 mmol/L (22-32); Chloride 102 mmol/L (98-107); Estimated Glomerular Filt Rate > 60 mL/min (>60); Glucose 111 mg/dL (70-99); HEMOLYSIS < 15 (0-50); Potassium 4.1 mmol/L (3.4-5.1); Sodium 138 mmol/L (137-145)
== END ==
PROVIDERS: PCP Internal Medicine; Referring Provider Internal Medicine; Visit Provider Internal Medicine
DX: R73.01 Impaired fasting glucose (principal)
CPT/HCPCS: 36415; 80048; 83036